=== PATIENT | female | born 1990 | race Caucasian/White ===

== ENCOUNTER 2022-05-01 17:59 | Emergency (ER) | payer SELFPAY ==
[2022-05-01 18:14] VITALS: BP 125/67; PULSE 76; RESP 16; TEMP 37.1; O2SAT 100
--- NOTE | 2022-05-01 18:36 | ED.ANIMALBIT ---
HPI - Animal Bite General Chief Complaint: Animal Bite Stated Complaint: Animal Bite Time Seen by Provider: 05/01/22 18:20 Source: patient Mode of arrival: ambulatory Limitations: no limitations History of Present Illness HPI narrative: Milena is a 32-year-old female patient presenting to clinic today with complaints of a cat bite to the left lateral hand. She reports that this count was a stray. States she was bitten earlier today. Tetanus shot is up-to-date per patient. Related Data Allergies Allergy/AdvReac Type Severity Reaction Status Date / Time No Known Allergies Allergy Unverified 05/01/22 18:09 Review of Systems Review of Systems: Pertinent positives per HPI. Patient denies any fever, chills, rash, headache, visual changes, dizziness, cough, runny nose, sore throat, shortness of breath, chest pain, palpitations, nausea, vomiting, diarrhea, constipation, abdominal pain, or any urinary issues. PMFSH Family History Family History Father Family history of thyroid disease Social History Social History Smoking status: Never smoker Second hand tobacco smoke exposure: Yes Smoking end date: 06/29/13 Alcohol intake: current Comments At the time of my signature, I reviewed and agree with the nursing past medical, surgical, social, and family history. There is no relevant family history pertinent to the patient complaint. Exam Narrative: General: Well-developed, well nourished, in no apparent distress Head: Normocephalic, atraumatic. Cardio: Regular rate and rhythm, s1 and s2 normal, no murmur appreciated. Resp: Clear to auscultation bilaterally, no rhonchi, rales, wheezing or rubs. Integumentary: Almedia, warm, and dry, puncture wound with mild swelling and redness to the left lateral palm. No discharge Course Course Emergency Course: Portions of this record may have been created with voice recognition software. Level of Care: Express Care Visit Vital Signs Vital signs: Vital Signs Temperature 37.1 C 05/01/22 18:14 Pulse Rate 76 05/01/22 18:14 Respiratory Rate 16 05/01/22 18:14 Blood Pressure 125/67 05/01/22 18:14 Pulse Oximetry 100 05/01/22 18:14 Oxygen Delivery Room Air 05/01/22 18:14 Temperature 37.1 C 05/01/22 18:14 Pulse Rate 76 05/01/22 18:14 Respiratory Rate 16 05/01/22 18:14 Blood Pressure 125/67 05/01/22 18:14 Pulse Oximetry 100 05/01/22 18:14 Oxygen Delivery Room Air 05/01/22 18:14 Vital signs reviewed MDM - Animal Bite MDM Narrative Medical decision making narrative: at the time of visit patient is resting comfortably on the exam table. Prescription for Augmentin was sent to the pharmacy. Tetanus status up-to-date per patient. Supportive measures were discussed with the patient she voiced understanding discharge instructions agrees to treatment plan. Differential Diagnosis Differential diagnosis: Likely bite by animal and cat bite Discharge Plan Discharge Clinical Impression: Cat bite Patient Disposition: Home, Self-Care Condition: Stable Instructions: Antibiotic Form, Animal Bite (ED) Additional Instructions: keep wound clean and dry apply triple antibiotic ointment to the affected take Augmentin as prescribed follow-up with your PCP in 3-5 days if symptoms persist or sooner if they worsen Prescriptions: New amoxicillin-pot clavulanate 875-125 mg tablet 1 tablet PO Q12H 7 Days Qty: 14 0RF Follow-up/Referrals: PHYSICIAN,COAL TRAM DRIVER [Primary Care Provider] - Time of Disposition: 18:37 Quality NIHSS Nursing Documentation ED NIHSS nursing documentation: reviewed/agree
== END 2022-05-01 18:39 | disposition home or self-care (01) ==
PROVIDERS: Emergency Provider Nurse Practitioner Family
DX: S61.432A Puncture wound without foreign body of left hand, initial encounter (principal); W55.01XA Bitten by cat, initial encounter; Z87.891 Personal history of nicotine dependence
CPT/HCPCS: 99213; G0463

== ENCOUNTER 2025-01-06 22:24 | Emergency (ER) | payer OTHER, SELFPAY ==
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
--- OUTSIDE RECORDS SUMMARY | 2025-01-06 22:27 | XMS_ITS | Referral Summary ---
Author Organization [facility] Care Team Providers Care Bell Spinner Sousaphones Name Role Phone No, Physician Primary Care Provider [phone] Allergies Active Allergy Reactions Criticality Noted Date Comments Bleach (Sodium Hypochlorite) Unknown 09/28/2018 Mushroom Other (See comments) Low 09/28/2018 abdominal pain Peanut Nausea & Vomiting Low 09/28/2018 sick to stomach Medications prenat.vits,edmundo, xxy-omty-jwfro ( VITAMIN) tablet Take 1 tablet by mouth daily Active 95-iron rpg-pwnhj-piw ( + DHA) 28 mg iron-800 mcg-200 mg combo pack daily 07/13/2018 Active Active Problems Problem Noted Date Diagnosed Date Encounter for supervision of normal in second trimester 09/28/2018 Overview (09/28/2018): [x] FOB name: Charissa First Trimester: [x] Dating Criteria:Dates by 11wk US [x] Labs: O+/I/-/-,NR [] Genetic Screeninnd Trimester: [x] Anatomy ultrasound: repeat 09/30/18 3rd Trimester: [] CBC, HIV, syphilis screen [] 1hr GCT (26-28wks): [] Tdap (27-36wks): [] Rhogam (if Rh neg): [] GBS: Counseling: [] Method of delivery: [] Method of contraception: undecided [] Method of feeding: undecided BMI 22.0-22.9, adult 09/28/2018 Blood type O+ 09/18/2018 BMI 22 09/18/2018 Incomplete anatomy; repeat 09/30/18 09/18/2018 Social History Tobacco Use Types Packs/Day Years Used Date Smoking Tobacco: Never Assessed Comments No Sex and Gender Information Value Date Recorded Sex Assigned at Not on file 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 Gender Identity Not on file Sexual Orientation Not on file Last Filed Vital Signs Vital Sign Reading Time Taken Comments Blood Pressure 96/60 09/30/2018 11:59 AM CDT Pulse 86 09/16/2016 8:00 AM CDT Temperature 36.8 C (98.2 F) 01/11/2016 4:12 PM CDT Respiratory Rate - - Oxygen Saturation 98% 09/16/2016 8:00 AM CDT Inhaled Oxygen Concentration - - Weight 62.6 kg (138 lb) 09/30/2018 11:59 AM CDT Height 158.8 cm (5' 2.5) 09/30/2018 11:59 AM CD T Body Mass Index 24.84 09/30/2018 11:59 AM CDT Plan of Treatment Not on file Insurance AETNA SIG [id number] Care Teams Bell Spinner Sousaphones Relationship Specialty Start Date End Date No, Physician PCP - General 09/17/18
--- OUTSIDE RECORDS SUMMARY | 2025-01-06 22:27 | XMS_ITS | Clinical Summary ---
Author Organization [facility] Address [address] [place] [address] Care Team Providers Care Mental Health Aide Name Role Phone Unavailable Primary Care Provider Unavailabl e Source Comments [facility] [employer],non-owned Affiliates and Associated Physician Practices is amultiple site organization consisting of ambulatory clinics and hospital sitesin [place], [place], [place] and [place]. This disclosure is being madepursuant to the Care Everywhere program and may not contain all information available regarding this patient. Last updated 18.[facility] [employer] Medications * Be aware that medications may not be up to date on this document. Alwaysverify current medications with the patient. 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 Gender Identity Not on file Sexual Orientation Not on file Plan of Treatment Health Maintenance Due Date Last Done Comments HEPATITIS C SCREENING 02/06/2010 DTAP/TDAP/TD VACCINES (1 - Tdap) 02/10/2011 HEPATITIS B VACCINE (1 of 3 - 19+ 3-dose series) 02/10/2011 PAP SMEAR 02/10/2013 COVID-19 VACCINE (1 - 2023-2 5 season) 2024 DEPRESSION SCREENING 06/29/2024 INFLUENZA VACCINE (#1) 2025 ZOSTER VACCINE (1 of 2) 02/10/2042 HIV SCREENING Completed 01/10/2019 HIB VACCINE Aged Out No longer eligi ble based on patient's age to complete this topic HPV VACCINE Aged Out No longer eligi ble based on patient's age to complete this topic MENINGOCOCCAL (Group B) VACC INE SHARED DECISION-MAKING Aged Out No longer eligibl e based on patient's age to complete this topic MENINGOCOCCAL GROUPS A/C/Y/W VACCINE Aged Out No longer eligible b ased on patient's age to complete this topic PNEUMOCOCCAL VACCINE Aged Out No long er eligible based on patient's age to complete this topic Insurance
--- OUTSIDE RECORDS SUMMARY | 2025-01-06 22:27 | XMS_ITS | Encounter Summary ---
Author Organization [facility] Address [facility] [place] [address] Care Team Providers Care Screen Machine Operator Name Role Phone None, Provider Primary Care Provider Stephena ble Encounter Details Date Type Department Care Team (Late st Contact Info) Description 02/04/2019 Hospital Follow-up Call [facility] [place] [address] Mariposa Jerry RN Social History Tobacco Use Types Packs/Day Years Used Date Smoking Tobacco: Former Smokeless Tobacco: Never Alcohol Use Standard Drinks/Week Comments No 0 (1 standard drink = 0.6 oz pur e alcohol) AUDIT-C Answer Date Recorded Frequency of Alcohol Consumption Never 01/23/2019 Average Number of Drinks Not on file 019 Frequency of Binge Drinking Not on file 12/28 Comments No Sex and Gender Information Value Date Recorded Sex Assigned at Not on file Legal Sex Female 3:29 AM CDT Gender Identity Not on file Sexual Orientation Not on file documented as of this encounter Functional Status * RETIRED Are you deaf or do you have serious difficulty hearing Answer Date of Assessment Author Status No 01/23/2019 4:20 AM CDT Acti ve * RETIRED Are you blind or do you have serious difficulty seeing, even when wearing glasses? Answer Date of Assessment Author Status No 01/23/2019 4:20 AM CDT Activ e * Do you have serious difficulty walking or climbing stairs? Answer Date of Assessment Author Status No 01/23/2019 4:20 AM CDT Cris Munoz RN Active * Do you have difficulty dressing or bathing? Answer Date of Assessment Author Status No 01/23/2019 4:20 AM CDT Cris Munoz RN Active * Because of a physical, mental, or emotional condition, do you have difficulty doing errands alone such as visiting a doctor's office or shopping? Answer Date of Assessment Author Status No 01/23/2019 4:20 AM Cris Berry RN Active documented as of this encounter Mental Status * Because of a physical, mental, or emotional condition, do you have serious difficulty concentrating, remembering, or making decisions? Answer Entry Date Author Status No 01/23/2019 4:20 AM Cris Berry RN Active documented in this encounter Plan of Treatment Not on file documented as of this encounter Visit Diagnoses Not on filedocumented in this encounter Care Teams Screen Machine Operator Relationship Specialty Start Date End Date None, Provider, PCP - General 01/23/19 documented as of this encounter
--- OUTSIDE RECORDS SUMMARY | 2025-01-06 22:27 | XMS_ITS | Clinical Summary ---
Author Organization [facility] Address [address] [place] [address] Care Team Providers Care Hedis Abstractor Name Role Phone None, Provider MD Primary Care Provider Unavaila ble Allergies Active Allergy Reactions Criticality Noted Date Comments Banana Nausea and Vomiting High 01/23/2019 Mushrooms Nausea and Vomiting High 01/23/2019 Medications ferrous sulfate, 65 mg elemental, 325 (65 FE) MG tablet Take 325 mg by mouth daily with breakfast. Active butalbital-acetamin ophen-caffeine (FIORICET) 50-300-40 MG capsule Take 1 capsule by mouth every 4 (four) hours as needed for Pain. 15 capsule 9 Active ondansetron (ZOFRAN ODT) 4 MG disintegrating tablet Take 1 tablet (4 mg total) by mouth every 8 (eight) hours as needed for Nausea. 15 tablet 9 Active Active Problems Problem Noted Date Diagnosed Date ([facility]) 01/23/2019 Family History Medical History Relation Comments Thyroid Disease Father Cancer Maternal Grandfather Kidney Disease Paternal Grandmother Relation Status Comments Father Maternal Grandfather Paternal Grandmother Social History Tobacco Use Types Packs/Day Years [...] Sign Reading Time Taken Comments Blood Pressure 103/82 03/03/2022 10:34 PM CDT Pulse 68 03/03/2022 10:34 PM CDT Temperature 36.7 C (98 F) 03/03/2022 9:03 PM CDT Respiratory Rate 18 03/03/2022 10:34 PM CDT Oxygen Saturation 100% 03/03/2022 10:34 PM CDT Inhaled Oxygen Concentration - - Weight 52.2 kg (115 lb 1.3 oz) 03/03/2022 9:03 P M CDT Height 157.5 cm (5' 2) 03/03/2022 9:03 PM CDT Body Mass Index 21.05 03/03/2022 9:03 PM CDT Plan of Treatment Health Maintenance Due Date Last Done Comments Cervical Cancer Screening Pa p Smear (Age 30 to 64) Every 3 Years 1992 Annual Physical 02/10/1995 Hepatitis C 02/10/2010 DTaP, Tdap and Td Vaccines ( 1 - Tdap) 02/10/2011 Hepatitis B Vaccines (1 of 3 - 19+ 3-dose series) 02/10/2011 Cervical Cancer Screening Pa p with HPV Testing (Age 30 to 64) Every 5 Years 02/10/2022 Cervical Cancer Screening with HPV 02/10/2022 COVID-19 Vaccine (2023-2 5 season) 2024 HPV Vaccines Aged Out No longer eligi ble based on patient's age to complete this topic Meningococcal B Vaccine Aged Out No l onger eligible based on patient's age to complete this topic Meningococcal Vaccine Aged Out No mohamud connie eligible based on patient's age to complete this topic Pneumococcal Vaccine: Pediat rics (0 to 5 Years) and At-Risk Patients (6 to 49 Years) Aged Out No longer eligible b ased on patient's age to complete this topic RSV Immunizations Under 20 Months Aged Out No longer eligible based on patient's age to complete this topic Insurance [facility] Advance Directives * Full Code (Latest Code Status on File) Date Activated Date Inactivated Comments 01/23/2019 3:49 AM 01/23/2019 6:51 AM Care Teams Hedis Abstractor Relationship Specialty Start Date End Date None, Provider, PCP - General 01/23/19
--- OUTSIDE RECORDS SUMMARY | 2025-01-06 22:27 | XMS_ITS | Encounter Summary ---
Author Organization [facility] Address [facility] [place] [address] Care Team Providers Care Quality Review Specialist Name Role Phone None, Provider Primary Care Provider Stephena ble Encounter Details Date Type Department Care Team (Late st Contact Info) Description 02/09/2019 Hospital Follow-up Call [facility] [place] [address] [place] [address] Mariposa Jerry RN Social History Tobacco Use [...] on filedocumented in this encounter Care Teams Quality Review Specialist Relationship Specialty Start Date End Date None, Provider, PCP - General 01/23/19 documented as of this encounter
--- OUTSIDE RECORDS SUMMARY | 2025-01-06 22:27 | XMS_ITS | Clinical Summary ---
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 Gender Identity Not on file Sexual Orientation Not on file Obstetrics History Para Term AB IAB SAB Ectopic Multiple Livin g Live Births 3 2 2 0 0 0 0 0 2 2 Date Outcome GA Total Labor Labor/2nd/3rd Weight Sex Type Anes PTL Marleen A1 A5 Name Clin 11/13 Term 38w 0d 3.771 kg (8 lb 5 oz) F Vag-S pont Epidura l N Living Complications:None 11/13 Term 38w 0d 3.771 kg (8 lb 5 oz) F Vag-S pont Epidura l N Living Last Filed Vital Signs Vital Sign Reading [...] Treatment Not on file Insurance AETNA SIG [id number] Care Teams Before School Relationship Specialty Start Date End Date No, Physician PCP - General 09/17/18
[2025-01-06 22:28] VITALS: BP 130/89; PULSE 92; RESP 16; TEMP 36.5; O2SAT 100
[2025-01-06] MEDS: IBUPROFEN 600 MG TABLET PO (23:35)
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
--- OUTSIDE RECORDS SUMMARY | 2025-01-07 00:02 | XMS_ITS | Encounter Summary ---
Author Organization [facility] Address [facility] [place] [address] Care Team Providers Care Lavatory Attendant Name Role Phone None, Provider Primary Care Provider Stephena ble Encounter Details Date Type Department Care Team (Late st Contact Info) Description 02/09/2019 Hospital Follow-up Call [facility] [place] [address] Mariposa Jerry RN Social History Tobacco Use [...] on filedocumented in this encounter Care Teams Lavatory Attendant Relationship Specialty Start Date End Date None, Provider, PCP - General 01/23/19 documented as of this encounter
--- OUTSIDE RECORDS SUMMARY | 2025-01-07 00:02 | XMS_ITS | Referral Summary ---
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
--- OUTSIDE RECORDS SUMMARY | 2025-01-07 00:02 | XMS_ITS | Clinical Summary ---
Author Organization [facility] Address [address] [place] [address] Care Team Providers Care Senior Hardware Engineer Name Role Phone Unavailable Primary Care Provider Unavailabl e Source Comments [facility] [employer],non-owned Affiliates and Associated Physician Practices is amultiple site organization consisting of ambulatory clinics and hospital sitesin [place], [place], [place] and [place]. This disclosure is being madepursuant to the Care Everywhere program and may not contain all information available regarding this patient. Last updated 18.[facility] [employer] Medications * Be aware that medications may not be up to date on this document. Alwaysverify current medications with the patient. 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
--- OUTSIDE RECORDS SUMMARY | 2025-01-07 00:02 | XMS_ITS | Clinical Summary ---
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
--- OUTSIDE RECORDS SUMMARY | 2025-01-07 00:02 | XMS_ITS | Encounter Summary ---
Author Organization [facility] Address [facility] [place] [address] Care Team Providers Care Driver Starting Gate Name Role Phone None, Provider Primary Care Provider Stephena ble Encounter Details Date Type Department Care Team (Late st Contact Info) Description 02/04/2019 Hospital Follow-up Call [facility] [place] [address] Mariposa Jerry RN Social History Tobacco Use [...] on filedocumented in this encounter Care Teams Driver Starting Gate Relationship Specialty Start Date End Date None, Provider, PCP - General 01/23/19 documented as of this encounter
--- OUTSIDE RECORDS SUMMARY | 2025-01-07 00:02 | XMS_ITS | Clinical Summary ---
Author Organization [facility] Address [address] [place] [address] Care Team Providers Care Bag Loader Machine Operator Name Role Phone None, Provider MD Primary [...] Active Problems Problem Noted Date Diagnosed Date ([facility]) 01/23/2019 Family History Medical History Relation Comments [...] patient's age to complete this topic Insurance [facility] Advance Directives * Full Code (Latest Code Status on File) Date Activated Date Inactivated Comments 01/23/2019 3:49 AM 01/23/2019 6:51 AM Care Teams Bag Loader Machine Operator Relationship Specialty Start Date End Date None, Provider, PCP - General 01/23/19
[2025-01-07 00:06] LABS: Cannabinoid Screen Urine Negative (Negative)
== END 2025-01-07 00:30 | disposition home or self-care (01) ==
LOC: ANHED 01-07
PROVIDERS: Emergency Provider Physician Assistant
DX: S93.402A Sprain of unspecified ligament of left ankle, initial encounter (principal); S96.912A Strain of unspecified muscle and tendon at ankle and foot level, left foot, initial encounter; Z87.891 Personal history of nicotine dependence; R93.6 Abnormal findings on diagnostic imaging of limbs; V03.00XA Pedestrian on foot injured in collision with car, pick-up truck or van in nontraffic accident, initial encounter
CPT/HCPCS: 73610; 73630; 80307; 99283; A9270